=== PATIENT | female | born 1975 | race Caucasian/White ===

== ENCOUNTER 2022-01-05 05:50 | Day surgery (SDC) | payer OTHER ==
[~2022-01-05] VITALS: Ht 157.5 cm; Wt 79.0 kg
--- NOTE | ~2022-01-05 | OR ---
[facility] [address], [place] [address] Draft DATE OF OPERATION: 01/05/2022 SURGEON: Priyank Spangler MD PREOPERATIVE DIAGNOSES: Recurring acute sinusitis and chronic ethmoiditis, sinus headaches. POSTOPERATIVE DIAGNOSES: Recurring acute sinusitis and chronic ethmoiditis, sinus headaches. PROCEDURE: Bilateral partial ethmoidectomy 31729-61. INDICATIONS: This 46-year-old female had sinus surgery more than a decade ago. She has suffered from increasing headaches and infections and is known to have chronic allergic rhinitis and the continual inflammatory reactions have helped congest the ethmoids and previous sinus surgery facilitated lateralization of the middle turbinates and it was not possible to put a scope into her sinuses to examine them in the office because of that stenosis. Likewise, this also created mucosa against mucosa in the ethmoid architecture which then would create a trouble spot and mucociliary clearance fostering infection. Because of medical failure to treat this with the complication noted from previous surgery, the plan was to remove that stenotic portion and also remove more of the middle turbinate remnant anteriorly to allow the sinuses to be irrigated as this also prevented adequate sinus irrigation in trying to maintain homeostasis of the sinuses. DESCRIPTION OF PROCEDURE: The patient was placed in the supine position, had an orotracheal intubation, was placed under general anesthesia. The sinuses were photographed previously, during and postoperatively. The patient also had almost a subtotal septal perforation as a complication from her 1st surgery. This was left untouched. The middle turbinates and lateral wall of the sinus were injected with a couple mL of 1% lidocaine 1:200,000 epinephrine distributed in both sides. Then, the Kerrison up-biting forceps was used to start to resect some of the lateral portion of the middle turbinates. Backbiting forceps was used on that left side to remove more of the anterior overhang of the anterior ethmoids and then the microdebrider was used to shave the diseased mucosa from the lateral wall of the ethmoids and from the middle turbinate remnant. This was done on the left side and the right side. Afterwards with a generous opening now into the sinuses, they were thoroughly scoped and photographed and found to be pretty much frontal sinuses, maxillary sinuses and sphenoid sinuses wide open with essentially no PATIENT NAME: OTONIEL XIAO OPERATIVE REPORT DATE OF : 79 REPORT #: [id number] PHYSICIAN: PRIYANK SPANGLER MD PCP: DASIA SLOAN REPORT IS CONFIDENTIAL AND NOT TO BE RELEASED WITHOUT AUTHORIZATION [facility] [address], [place] [address] Draft inflammation. This completed the defect repair or defect resolution. The patient was awakened, sent to recovery room in good condition. No packing required. Estimated blood loss less than 5 mL. She will be followed closely in the office to make sure she does not try to lateralize any of the turbinate again, however, unlikely. Priyank Spangler MD [facility] /[id number] Copies: ~ PATIENT NAME: DAMEONOTONIEL Singleton OPERATIVE REPORT DATE OF : 79 REPORT #: [id number] PHYSICIAN: PRIYANK SPANGLER MD PCP: DASIA SLOAN REPORT IS CONFIDENTIAL AND NOT TO BE RELEASED WITHOUT AUTHORIZATION
[~2022-01-05 05:50] MED LIST: PHENTERMINE H37.5 MG PO
--- NOTE | 2022-01-05 08:34 | NUR ---
01/05/22 0834 Moon Vargas 0827- PT ARRIVES TO PACU NONAROUSABLE TO STIMULI WITH AN OPA IN PLACE. RESP EVEN AND UNLABORED. OXYGEN SAT HIGH 90'S TO 100% ON 10L VIA MASK.
--- NOTE | 2022-01-05 08:50 | NUR ---
PT ALERT, ORIENTED AND SUPPORTED BY HER MARTA. ALL QUESTIONS ASKED AND ANSWERED. DR MEJIA IN [facility] AND ONCOLOGY PATIENT NAVIGATORDOMINGA PATTERSON STEPPED IN AND COULD NOT COMPLETE MY PT CARE. WILL FOLLOW NEEDED
--- NOTE | 2022-01-05 09:27 | NUR ---
ASSES COMPLETED, PT AWAKE AND ALERT DENIES PAIN OR NAUSEA, SHE WAS ON 2 O2 WHEN FROM PACU, TURNED OFF O2 WHEN SHE GOT TO HER ROOM IN DAY SURGERY SHE HAS BEEN MAINTAINS SATS ABOVE 95%, DRIP DRESSING CLEAN AND DRY, BP IS LOW OPENED LR WILL GIVE HER TO REMAINING 250ML OF FLUID AND ASSES BP AGAIN. IS AT BEDSIDE. PT TAKING ICE CHIPS AND DRINKING WATER TOLERATES WELL. WARM BLANKET GIVEN, CALL LIGHT WITH IN REACH.
--- NOTE | 2022-01-05 09:54 | NUR ---
ASSESS COMPLETED, BLOOD PRESSURE IMPROVED, PT DENIES PAIN AND NAUSEA, PT EATING JELLO AND DRINKING WATER TOLERATES WELL.
--- NOTE | 2022-01-05 10:05 | NUR ---
PT UP TO THE BATHROOM SHE WAS ABLE TO AMBULATE WITHOUT ASSIST, SHE WAS ABLE TO VOID, SHE AMBULATED BACK TO HER AND GOT BACK IN BED WITHOUT ASSIST. SHE DENIES PAIN AND NAUSEA.
--- NOTE | 2022-01-05 10:44 | NUR ---
ASSESSMENT COMPLETED, BP IMPROVED PT DENIES PAIN OR NAUSEA, PT OPTED NOT TO WEAR GAUZE DRESSING SHE HAD NO BLEEDING. SHE STATES READINESS TO GO HOME, IV DC'D TIP INTACT DISCHARGE INSTRUCTIONS GIVEN TO PT AND BOTH VOIDED UNDERSTANDING PT WAS WHEELED OUT TO CAR BY RN.
== END 2022-01-05 10:30 | disposition home or self-care (01) ==
LOC: OPS 05:50 → DS 05:50 → EDSTATUS 07:30 → OPS 07:30 → DS 07:30 → OPS 10:30
PROVIDERS: ATTEND Otolaryngology
PROC: 09BU8ZZ Excision of Right Ethmoid Sinus, Via Natural or Artificial Opening Endoscopic (ICD-10-PCS; 2022-01-05)
PROC: 09BV8ZZ Excision of Left Ethmoid Sinus, Via Natural or Artificial Opening Endoscopic (ICD-10-PCS; principal; 2022-01-05 07:30)
DX: J32.2 Chronic ethmoidal sinusitis (principal); J01.91 Acute recurrent sinusitis, unspecified; R51.9 Headache, unspecified; Z20.822 Contact with and (suspected) exposure to COVID-19
CPT/HCPCS: J0330; J1100; J1885; J2250; J2370; J2405; J2704; J2765; J3010; J7121